=== PATIENT | male | born 1950 | race Caucasian/White ===

== ENCOUNTER 2017-02-12 08:15 | Inpatient (IN) | payer OTHER, MEDICARE ==
[2017-03-17] MEDS ORDERED: ROPIVACAINE 0.2% 80 MG, EPINEPHrine 0.2 MG, KETOROLAC TROMETHAMINE 30 MG in BAG 0 ML IU ONE (06:00)
[2017-03-17] MEDS ORDERED: TRANEXAMIC ACID 3,000 MG in NS 50 ML IRR ONE (06:00)
[2017-03-17] MEDS ORDERED: DEXAMETHASONE 4 MG/ML VIAL IVP ONE (06:09)
[2017-03-17] MEDS ORDERED: ACETAMINOPHEN 325 MG TAB PO ONE (06:09)
[2017-03-17] MEDS ORDERED: ceFAZolin 2 GM/DEXTROSE 100 ML IV ONE (06:09)
[2017-03-17] MEDS ORDERED: FAMOTIDINE 20 MG TAB PO ONE (06:09)
[2017-03-17] MEDS ORDERED: LIDOCAINE 1% 2 ML INJ ID PRN (06:14)
[2017-03-17] MEDS ORDERED: LR 1,000 ML IV ONE (06:14)
[2017-03-17] MEDS ORDERED: LIDOCAINE 1% 2 ML INJ ONE (06:20)
[2017-03-17] MEDS ORDERED: TRANEXAMIC ACID 3,000 MG/50 ML BAG IRR ONE (06:28)
--- NOTE | 2017-03-17 06:52 | PDANEPAE ---
ANE History of Present Illness right hip OA ANE Past Medical History - Cardiovascular History Hx Hypertension: No Hx Arrhythmias: No Hx Chest Pain: No Hx Coronary Artery / Peripheral Vascular Disease: No Hx CHF / Valvular Disease: No Hx Palpitations: No - Pulmonary History Hx COPD: No Hx Asthma/Reactive Airway Disease: No Hx Recent Upper Respiratory Infection: No Hx Oxygen in Use at Home: No Hx Sleep Apnea: No Sleep Apnea Screening Result - Last Documented: Negative - Neurologic History Hx Cerebrovascular Accident: No Hx Seizures: No Hx Dementia: No - Endocrine History Hx Diabetes: No - Renal History Hx Renal Disorders: No - Liver History Hx Hepatic Disorders: No - Neurological & Psychiatric Hx Hx Neurological and Psychiatric Disorders: No - Cancer History Hx Cancer: No - Congenital Disorder History Hx Congenital Disorders: No - GI History Hx Gastrointestinal Disorders: Yes Gastrointestinal History Comment: GERD, inflammation lower esophagus - Other Health History Other Health History: OA R hip - Chronic Pain History Chronic Pain: No - Surgical History Prior Surgeries: Appy. C4/C5 spinal fusion. L5/S1 discectomy 2007. ORIF L elbow. L total hip . tonsillectomy -child ANE Review of Systems - Exercise capacity METS (RN): 4 METS ANE Patient History - Allergies Allergies/Adverse Reactions: amoxicillin [Amoxicillin] Allergy (Intermediate, Verified 01/26/17 10:10) WELLER, SEVERE SEASONAL Allergy (Mild, Uncoded 04/10/13 09:57) Congestion - Home Medications Home Medications: Testosterone 75mg Capsule (Compounded) 75 mg PO DAILY 01/22/17 [Last Taken 03/10] PRILOSEC 01/26/17 [Last Taken 03/17/17] - NPO status NPO Since - Liquids (Date): 03/16/17 NPO Since - Liquids (Time): 21:00 NPO Since - Solids (Date): 03/16/17 NPO Since - Solids (Time): 21:00 - Anes Hx Anes Hx: no prior problems - Smoking Hx Smoking Status: Never smoked ANE Labs/Vital Signs - Vital Signs Blood Pressure: 135/94 Heart Rate: 59 Respiratory Rate: 15 O2 Sat (%): 93 Height: 185.42 cm Weight: 83.915 kg ANE Physical Exam - Airway Neck exam: FROM Mallampati Score: Class 2 Mouth exam: normal dental/mouth exam - Pulmonary Pulmonary: no respiratory distress - Cardiovascular Cardiovascular: regular rate and rhythym - ASA Status ASA Status: II ANE Anesthesia Plan Anesthesia Plan: spinal
[2017-03-17] MEDS ORDERED: MIDAZOLAM 2 MG/2 ML VIAL IVP ONE (06:53)
[2017-03-17] MEDS ORDERED: PROPOFOL 200 MG/20 ML VIAL ONE ×5 (06:56→07:59)
--- NOTE | 2017-03-17 07:07 | PDHPUP ---
History & Physical Update H&P update statement: This history and physical update is based on an assessment of the patient which was completed after admission or registration (within 24 hours), but prior to the surgery/procedure. H&P update: H&P reviewed & patient examined, no change in patient's condition since H&P completed
[2017-03-17] MEDS ORDERED: ONDANSETRON 4 MG/2 ML VIAL IVP PRN ×2 (08:22→08:45)
[2017-03-17] MEDS ORDERED: ALBUTEROL 3 ML DEYVIAL IH PRN (08:22)
[2017-03-17] MEDS ORDERED: OXYCODONE/APAP 5/325 TAB PO PRN (08:22)
[2017-03-17] MEDS ORDERED: ACETAMINOPHEN 500 MG TAB PO PRN (08:22)
[2017-03-17] MEDS ORDERED: PROMETHAZINE HCL 25 MG/ML INJ IVP PRN ×2 (08:22→08:45)
[2017-03-17] MEDS ORDERED: HYDROmorphONE/DILAUDID 1 MG/ML SYR IVP PRN (08:22)
[2017-03-17] MEDS ORDERED: fentaNYL 100 MCG/2 ML INJ IVP PRN (08:22)
[2017-03-17] MEDS ORDERED: NALOXONE HCL 0.4 MG/ML INJ IVP PRN (08:22)
[2017-03-17] MEDS ORDERED: METOCLOPRAMIDE 10 MG/2 ML VIAL IVP PRN (08:45)
[2017-03-17] MEDS ORDERED: TEMAZEPAM 15 MG CAP PO PRN (08:45)
[2017-03-17] MEDS ORDERED: PHARMACY PAIN CONSULT 1 EA MISC PRN (08:45)
[2017-03-17] MEDS ORDERED: ONDANSETRON DISINTEGRATING 4 MG TAB PO PRN (08:45)
[2017-03-17] MEDS ORDERED: LACTULOSE 20 GM/30 ML UDCUP PO PRN (08:45)
[2017-03-17] MEDS ORDERED: CYCLOBENZAPRINE 10 MG TAB PO PRN (08:45)
[2017-03-17] MEDS ORDERED: PROMETHAZINE HCL 25 MG SUPPR PR PRN (08:45)
[2017-03-17] MEDS ORDERED: POLYETHYLENE GLYCOL 3350 17 GM PKT PO PRN (08:45)
[2017-03-17] MEDS ORDERED: diphenhydrAMINE 25 MG CAP PO PRN (08:45)
[2017-03-17] MEDS ORDERED: BISACODYL 10 MG SUPP PR PRN (08:45)
[2017-03-17] MEDS ORDERED: DIPHENOXYLATE/ATROPINE LOMOTIL 1 TAB PO PRN (08:45)
[2017-03-17] MEDS ORDERED: MAGNESIUM HYDROXIDE 30 ML UDCUP PO PRN (08:45)
--- NOTE | 2017-03-17 08:45 | POSTOPPROG ---
Post Op Note Date of Operation: 03/17/17 Surgeon: Horace Blanca Event Marketing Specialist: veronica blanca Anesthesiologist: dr. espinoza Anesthesia: Spinal Pre-op Diagnosis: right hip OA Post-op Diagnosis: same Indication: right hip pain due to OA that failed conservative measures Procedure: R LALY ant approach Findings: severe hip OA Inf/Abcess present in the surg proc area at time of surgery?: No EBL: 100-500
--- NOTE | 2017-03-17 08:47 | POSTANESTH ---
Post Anesthetic Evaluation Cardiovascular Status: Normal, Stable Respiratory Status: Normal, Stable Level of Consciousness/Mental Status: Mildly Sleepy, Arousable Pain Control: Adequate, Prn Tx Ordered Nausea/Vomiting Control: Adequate, Prn Tx Ordered Complications Possibly Related to Anesthesia: None Noted
[2017-03-17] MEDS ORDERED: NON-FORMULARY NEW DRUG (Omeprazole [Prilosec 20 Mg] 20 MG) PO SCH (09:00)
[2017-03-17] MEDS: LR 1,000 ML IV SCH ×2 (10:05→20:09)
[2017-03-17] MEDS: oxyCODONE IR 5 MG TAB PO PRN ×3 (11:00→20:09)
[2017-03-17] MEDS: PANTOPRAZOLE SODIUM 40 MG TAB PO SCH (11:02)
[2017-03-17] MEDS: SENNOSIDES/DOCUSATE SODIUM TAB PO SCH ×2 (11:02→20:09)
[2017-03-17] MEDS: ACETAMINOPHEN 325 MG TAB PO SCH ×3 (11:02→23:07)
[2017-03-17] MEDS: ceFAZolin 2 GM/DEXTROSE 100 ML IV SCH ×2 (13:20→23:08)
[2017-03-17] MEDS: ASPIRIN 325 MG TAB PO SCH (20:09)
[2017-03-17] MEDS: FAMOTIDINE 20 MG TAB PO SCH (20:09)
[2017-03-18] MEDS: ACETAMINOPHEN 325 MG TAB PO SCH ×2 (05:00→10:59)
[2017-03-18 05:01] LABS: HEMATOCRIT 36.7 % (40.0-51.0); HEMOGLOBIN 12.6 g/dL (13.7-17.5)
[2017-03-18] MEDS: oxyCODONE IR 5 MG TAB PO PRN ×2 (06:31→11:00)
--- NOTE | 2017-03-18 07:37 | GOP ---
[f rep st] OPERATIVE REPORT DATE OF OPERATION: 03/17/2017 SURGEON: Carroll Rubin MD CHUCK BONER: RITESH Castaneda. ANESTHESIA: Spinal. PREOPERATIVE DIAGNOSIS: Right hip osteoarthritis. POSTOPERATIVE DIAGNOSIS: Right hip osteoarthritis. PROCEDURE PERFORMED: Right total hip arthroplasty with navigation. FINDINGS: ESTIMATED BLOOD LOSS: 200 cc. INDICATIONS: The patient has progressively worsening arthritis of the hip which has failed medical management. The patient understands the treatment option including continued non-operative care and has selected surgical intervention. The patient has decided to undergo total hip arthroplasty via the direct anterior approach understanding the risks of the procedure including, but not limited to, neurovascular injury, infection, persistent pain, component wear and loosening, deep venous thrombo sis, pulmonary embolism, limb length inequality (including dislocation), and intraoperative fracture s. DESCRIPTION OF PROCEDURE: After proper identification of the patient including verification and mar hedy the surgical site, the patient was brought to the operating room and placed in the supine posit ion. All bony prominences were well padded. Anesthesia was induced without complication and intrav enous prophylactic antibiotics were administered prior to skin incision. After prepping and draping in the usual sterile fashion, attention was drawn to the contralateral pe lvis for attachment of the computer navigation tracker. Three percutaneous incisions were made over the iliac crest and the pelvic tracker was affixed using threaded 3.5 mm pins yielding excellent fi xation. Using computer navigation the patient's leg length and topographical pelvic anatomy was reg istered without complication. Attention was then drawn to surgical exposure of the hip. An incision was made with a #10 [place] er blade starting 3 cm lateral and 3 cm distal to the anterior superior iliac spine measuring 8 cm t o 10 cm and coursing distally toward the greater trochanter. The skin and subcutaneous tissues were divided sharply down the fascia cornelia. The fascia cornelia was incised in line with the skin incision e xposing the underlying tensor fascia cornelia muscle. This muscle was bluntly elevated from the fascia and the first extracapsular Cobra retractor was placed laterally at the junction of the superior fem oral neck and greater trochanter. The lateral femoral circumflex vessels were identified, cauterize d and divided with the Aquamantys bipolar cautery. The deep investing fascia of the TFL was divided to allow proper mobilization of the muscle preventing damage during retraction. The reflected head of the rectus femoris muscle was elevated off the anterior hip capsule and a medial Cobra retractor was placed just proximal to the lesser trochanter. The anterior capsulotomy was made sharply from the superolateral acetabulum to the saddle junction o f the superior femoral neck and greater trochanter, then coursing inferomedial towards the lesser tr ochanter. The retractors were then placed in the intracapsular position for femoral neck osteotomy. Corresponding to preoperative templating the osteotomy was made with the oscillating saw protectin g the greater trochanter and soft tissues. The femoral head was removed from the acetabulum with a corkscrew and confirmed to be severely arthritic with exposed bone, deformity and osteophytes. Merle lar finding were confirmed in the acetabulum. The Arch table extension was then placed in 40 degrees external rotation. Attention was then drawn to the acetabular preparation. After placement of the anterior and posterior Cobra retractors outsi de the labrum and intrascapular the circumferential labrum was removed sharply. The foveal contents were then removed and hemostasis obtained with cautery. The anatomy of the acetabulum was then reg istered using computer navigation. The first reamer selected was sized using the removed femoral head. Reaming began with robotic assi st at 40 degrees of abduction and 20 degrees of anteversion using computer navigation. Reaming ceas ed 0 mm less than the definitive acetabular component. The final acetabular component was inserted using the computer to achieve proper orientation yielding excellent purchase and stability in the ac etabulum. The final acetabular liner was then placed and its seating confirmed. Attention was then turned to the femur. The Arch table extension was placed in extension and adduct ion delivering the osteotomized femoral neck into the wound. A 2-pronged femoral elevator was place d at the calcar and another at the tip of the greater trochanter. The posterolateral capsule was re leased with cautery allowing mobilization of the femur lateral and anterior for preparation. The ex ternal rotators were visualized and preserved. A curette and rongeur were used to open the starting point for broaching. Serial broaching started with the #0 broach and ended with the broach that exh ibited excellent fit in the proximal femur. A change in pitch during mallet strikes was accompanied by the inability to advance the broach any further. The trial reduction was performed and fluorosc opic navigation was utilized to check limb length. Adjustments were made to equalize limb length ac cordingly. After the final trials were accepted they were removed and the wound was copiously lavaged. The fem oral component was seated to the same depth as the final broach and the femoral head was impacted on to the clean trunnion. The hip was then reduced for the final time and once more fluoroscopic navig ation used to check that limb length equality was achieved. The wound was irrigated and closed in layers, the fascia cornelia with 2-0 Quill, the subcutaneous tissu e with a 2-0 Quill, and the skin with Dermabond, including the small incisions for computer navigati on. Sterile dressings were applied. Final sharps and sponge counts were accurate. The patient was then transferred to a hospital bed and brought to the recovery room in stable condition. IMPLANTS: Accolade II, size 6 at 127. Acetabular component 58 mm Tritanium. The liner is a Triden t x3, 36 mm. The head is a Biolox Delta 36 mm -2.5. /[id number]/MODL
[2017-03-18 07:47] VITALS: BP 124/87; PULSE 53; RESP 14; TEMP 97.6; O2SAT 93
[2017-03-18] MEDS: ASPIRIN 325 MG TAB PO SCH (08:21)
[2017-03-18] MEDS: SENNOSIDES/DOCUSATE SODIUM TAB PO SCH (08:21)
[2017-03-18] MEDS: PANTOPRAZOLE SODIUM 40 MG TAB PO SCH (08:21)
[2017-03-18] MEDS: FAMOTIDINE 20 MG TAB PO SCH (08:21)
--- NOTE | 2017-03-18 08:46 | SOAPPROG ---
SOAP Progress Note Assessment/Plan: Assessment: Patient is doing well POD 1 s/p R LALY Pain management: pain is well controlled on oral pain meds. VTE ppx: recommend aspirin daily for 3 weeks, cont ZAK and SCDs Anemia: level is expected initially postop. Asymptomatic. Continue to monitor D/c planning: d/c to home today pending release from PT postop urinary retention: straight cath'd yesterday, resolved today Plan: 03/18/17 08:45 Subjective: Augustin is doing well today, denies SOB, chest pain and N/V. Objective: Vital Signs Temp Pulse Resp BP Pulse Ox 36.4 C 53 L 14 124/87 H 93 03/18/17 07:45 03/18/17 07:45 03/18/17 07:45 03/18/17 07:45 03/18/17 07:45 Laboratory Results 03/18/17 04:39 03/17/17 03/18/17 03/19/17 05:59 05:59 05:59 Intake Total 4533 Output Total 6173 Balance 2158 RLE: incision dressing is clean and dry, NVI, +pf/df ICD10 Worksheet Patient Problems: Problems Problem Status Onset Primary localized osteoarthritis of right hip Acute
== END 2017-03-18 11:34 | disposition home or self-care (01) | DRG 470 ==
LOC: F3N 03-17 06:01 → EEVIPCON 03-17 08:15 → F3N 03-17 10:11
PROVIDERS: ADMIT Orthopaedic Surgery; ATTEND Orthopaedic Surgery
PROC: 8E0Y0CZ Robotic Assisted Procedure of Lower Extremity, Open Approach (ICD-10-PCS; principal; 2017-03-17 07:15)
PROC: 0SR904Z Replacement of Right Hip Joint with Ceramic on Polyethylene Synthetic Substitute, Open Approach (ICD-10-PCS; principal; 2017-03-17 07:15)
DX: M16.11 Unilateral primary osteoarthritis, right hip (principal); Z96.642 Presence of left artificial hip joint
CPT/HCPCS: 97116-GP; 97161-GP; 97165-GO; G8978-GP-CI; G8979-GP-CI; G8980-GP-CI; G8987-GO-CI; G8988-GO-CI; G8989-GO-CI; J0171; J0690; J1100; J1885; J2250; J2704; J2795

== ENCOUNTER → 2017-03-10 | Outpatient (CLI) | payer MEDICARE, OTHER | LOC: FIMAGING 12:32 | PROVIDERS: ATTEND Orthopaedic Surgery | DX: Z01.818 Encounter for other preprocedural examination (principal); M16.11 Unilateral primary osteoarthritis, right hip ==

== ENCOUNTER → 2018-06-03 | Outpatient (CLI) | payer OTHER, MEDICARE | LOC: FIMAGING 13:55 | PROVIDERS: ATTEND Family Medicine | DX: R05 Cough (principal) ==